=== PATIENT | female | born 1990 | race Caucasian/White ===

== ENCOUNTER 2025-03-09 19:22 | Emergency (ER) | payer BC ==
[2025-03-09 20:02] VITALS: TEMP 98.1
[2025-03-09] MEDS: TYLENOL 325 MG PO ONE (20:23)
[2025-03-09] MEDS ORDERED: TYLENOL 325 MG ONE (20:23)
--- NOTE | 2025-03-09 20:26 | ERPHSYRPT ---
- History of Present Illness Time Seen by Provider: 03/09/25 20:21 Source: patient Patient Subjective Stated Complaint: c/o fall and left wrist injury Triage Nursing Assessment: patient brought self to ED with c/o fall and left wrist injury. patient was walking dog and got tripped up shoe laces and landed on bilat. wrist and bilat. knees. rating 8/10 left wrist pain, wrist is tender, right knee has a 2cm abrasion, no bleeding present, left knee has loose skin presentm slightly swollen, no brusing present at this time, hypertensive, gait steady, patient doesn't appear to be in any distress at this time. 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 Patient states she tripped on her shoestring and landed on a hyperextended wrist. Patient has superficial abrasions to both knees and wrist. Nurse has rendered local wound care. Patient denies other injuries. No BHT or LOC. No neck pain. Cervical spine cleared clinically. The fall was mechanical and not associated with any neuro cardiovascular symptomology. No associated nausea vomiting or diaphoresis. No chest pain or shortness of breath. No numbness tingling or weakness. Patient's pain is localized to her left wrist. Pain described as an ache that is localized. No radiation. Pain reproduced with movement and palpation. Patient voices no other complaints or concerns at this time. Portions of this note were created with voice recognition technology. There may be grammatical, spelling, punctuation or sound alike errors Occurred: just prior to arrival Method of Injury: fell Quality: constant, aching Severity of Pain-Max: moderate Severity of Pain-Current: mild Extremities Pain Location: wrist: left Modifying Factors: Improves With: movement Associated Symptoms: none Allergies/Adverse Reactions: No Known Drug Allergies Allergy (Verified 03/09/25 19:54) Home Medications: Hydrocortisone 5 mg PO BID 03/09/25 [History] Levothyroxine Sodium 125 mg PO DAILY 03/09/25 [History] Propranolol HCl 10 mg PO DAILY PRN PRN 03/09/25 [History] buPROPion HCL [Wellbutrin Xl] 300 mg PO DAILY 03/09/25 [History] norgestimate-ethinyl estradioL [Yno-Df-Hliwcz Tablet] 1 tab PO DAILY 03/09/25 [History] Hx Tetanus, Diphtheria Vaccination/Date Given: Yes Hx Influenza Vaccination/Date Given: No Hx Pneumococcal Vaccination/Date Given: No Travel Risk - International Travel Have you traveled outside of the country in past 3 weeks: No - Emerging Infectious Disease Are you exhibiting symptoms associated with any current EIDs: No - Review of Systems All Other Systems: Reviewed and Negative - Past Medical History Pertinent Past Medical History: No Neurological History: No Pertinent History ENT History: No Pertinent History Cardiac History: No Pertinent History Respiratory History: No Pertinent History Endocrine Medical History: Trae's Disease Musculoskeletal History: Fractures GI Medical History: No Pertinent History History: No Pertinent History Psycho-Social History: Anxiety Female Reproductive Disorders: No Pertinent History Other Medical History: fractured collar bone, Merino's disease - Past Surgical History Past Surgical History: Yes Neuro Surgical History: No Pertinent History Cardiac: No Pertinent History Respiratory: No Pertinent History Gastrointestinal: Appendectomy Genitourinary: No Pertinent History Musculoskeletal: No Pertinent History Female Surgical History: No Pertinent History Other Surgical History: right eye surgery x 3, - Female History Hx Last Menstrual Period: no longer has periods Hx Now: No - Social History Smoking Status: Never smoker Exposure to second hand smoke: No Drug Use: none - Social Determinants of Health Will the patient participate in the screening: Yes Do you worry about a steady place to live?: No Do you have any problems with any of the following?: No known problems In the past 12 months,have you had to go without utilities?: No Transportation Issues: No Has anyone in your support network made you feel unsafe?: No Have you or anyone in your house had to go w/o enough food: No - Nursing Vital Signs Nursing Vital Signs: Initial Vital Signs Temperature 98.1 F 03/09/25 19:54 Pain Scale Pain Intensity 4 - Physical Exam General Appearance: alert Eyes, Ears, Nose, Throat Exam: moist mucous membranes Neck Exam: normal inspection Cardiovascular/Respiratory Exam: regular rate/rhythm, no respiratory distress Abdominal Exam: non-tender, No guarding Back Exam: normal inspection, No vertebral tenderness Shoulder Exam: normal inspection, non-tender, no evidence of injury, normal ROM Elbow/Forearm Exam: normal inspection, non-tender, no evidence of injury, normal ROM Wrist Exam: swelling (Left wrist swelling mostly at the radial side. Overlying soft tissue intact. No open or draining lesions.) Hand Exam: normal inspection Neuro/Tendon Exam: normal sensation, normal motor functions Mental Status Exam: alert, oriented x 3, cooperative Skin Exam: normal color, warm, dry SpO2 Interpretation: normal O2 Delivery: Room Air - Course Nursing assessment & vital signs reviewed: Yes - Radiology Exams Wrist X-ray Interpretation: Interpreted by me (Left wrist fracture) Ordered Tests: Active Orders 24 hr Category Date Time Status WRIST (MIN 3 VIEWS) Stat Exams 03/09/25 20:20 Taken Medication Summary Generic Name Dose Route Start Last Admin Trade Name Freq PRN Reason Stop Dose Admin Ketorolac Tromethamine 30 mg 03/09/25 21:59 Ketorolac Tromethamine 30 Mg/Ml Inj IM 03/09/25 22:00 STAT ONE Discontinued Medications Generic Name Dose Route Start Last Admin Trade Name Freq PRN Reason Stop Dose Admin Acetaminophen 975 mg 03/09/25 20:20 03/09/25 20:23 Acetaminophen 325 Mg Tablet PO 03/09/25 20:21 975 mg STAT ONE Administration Acetaminophen Confirm 03/09/25 20:23 Acetaminophen 325 Mg Tablet Administered 03/09/25 20:24 Dose 975 mg .ROUTE .[employer]-MED ONE - Progress Progress: improved Progress Note: 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 Physical exam revealed swelling and tenderness to her left wrist on the radial side. X-ray reveals a distal radius fracture. The fracture is nondisplaced nonangulated. Involved extremities neurovascular intact distally compartments are soft cap refill less than 2 seconds. Patient placed in a left forearm sugar-tong splint and a left upper extremity sling. Patient received Tylenol and Toradol for pain control. Patient neurovasc intact distally post splint application. Patient referred to the orthopedic clinic for follow-up. History obtained from patient. Differential diagnosis is a wrist fracture, ligament sprain, muscle strain Portions of this note were created with voice recognition technology. There may be grammatical, spelling, punctuation or sound alike errors Complexity of problem addressed is moderate acute complicated. No critical care time. Complexity of data reviewed and analyzed is moderate. Dr. Kane vela pendently reviewed the x-ray of the left involved the wrist. Distal radius fracture observed. Risk of complication at risk of morbidity/mortality of patient management is moderate. A prescription for Toradol forwarded to patient's pharmacy. Vital stable. Time spent to discharge patient is approximately 10 minutes. Plan of care established for shared decision making. No social determinants of health present to impede follow-up. Portions of this note were created with voice recognition technology. There may be grammatical, spelling, punctuation or sound alike errors 22:02 03/09/25 22:05 Counseled pt/family regarding: diagnosis, need for follow-up, rad results - Departure Departure Disposition: Home Clinical Impression: Left wrist fracture Condition: Stable Critical Care Time: No Referrals: ELIZABETH DAVIES, DO [Primary Care Provider, UNKNOWN] - Follow up/PCP as directed Additional Instructions: Please follow-up in the orthopedic clinic tomorrow between the hours of 8 and 10 AM. Discharge/Care Plan KAREN CHAIDEZ was seen on 03/09/25 in the Emergency Room. The patient was counseled regarding Diagnosis,Lab results, Imaging studies, need for follow up and when to return to the Emergency Room. Prescriptions given: Discharge Note I have spoken with the patient and/or caregivers. I have explained the patient's condition, diagnosis and treatment plan based on the information available to me at this time. I have answered the patient's and/or caregiver's questions and addressed any concerns. The patient and/or caregivers have as good understanding of the patient's diagnosis, condition and treatment plan as can be expected at this point. The vital signs have been stable. The patient's condition is stable and appropriate for discharge from the emergency department. The patient will pursue further outpatient evaluation with the primary care physician or other designated or consulting physician as outlined in the discharge instructions. The patient and/or caregivers are agreeable to this plan of care and follow-up instructions have been explained in detail. The patient and/or caregivers have received these instruction. The patient/and or caregivers are aware that any significant change in condition or worsening of symptoms should prompt an immediate return to this or the closest emergency department or call 911. Prescriptions: Ketorolac Trometh 10 mg Tab [TORAdol 10 MG TABLET] 10 mg PO TID 5 Days #15 tablet Outpatient Orders: Ortho Referral Time Frame: 1 Day, Facility: [facility], Location: [facility]
[2025-03-09] MEDS ORDERED: TORAdol 30 mg Injection ONE (22:10)
[2025-03-09] MEDS: TORAdol 30 mg Injection IM ONE (22:10)
[2025-03-09 22:17] VITALS: BP 159/73; PULSE 83; RESP 18; O2SAT 98
--- NOTE | 2025-03-10 08:56 | XRAY ---
Indication: Pain following fall. Comparison: None 3 view left wrist demonstrates nondisplaced comminuted fracture distal radius with intra-articular extension, nondisplaced fracture tip ulnar styloid, and soft tissue swelling. Elsewhere osteopenia. No other abnormalities.
== END 2025-03-09 22:23 | disposition home or self-care (01) ==
LOC: ED 19:22
DX: S52.502A Unspecified fracture of the lower end of left radius, initial encounter for closed fracture (principal); W01.0XXA Fall on same level from slipping, tripping and stumbling without subsequent striking against object, initial encounter; Y93.K1 Activity, walking an animal; Z79.899 Other long term (current) drug therapy